=== PATIENT | male | born 1965 | race African-American/Black ===

== ENCOUNTER 2016-11-10 19:03 | Emergency (ER) | payer OTHER ==
[2016-11-10 19:10] VITALS: BP 158/100
--- NOTE | 2016-11-10 19:13 | PHYS DOC ---
Adult General Chief Complaint Chief Complaint: LACERATION/AVULSION HPI HPI Patient is a 51 year old M who presents with left index finger laceration. Patient cut himself while at work. Patient sustained no other injuries. Patient has a 2 cm laceration to his proximal index finger on the palm side. Patient sustained no other injuries. Patient states he can move all his fingers and has no loss of sensation. Patient's tetanus is not up-to-date. Pertinent exam findings: [place] a laceration to the proximal index finger on the left palmar side, cap Refill less than 2 seconds, patient able to flex and extend his index finger without any difficulty ED course: Patient was seen and evaluated, tetanus is updated in the emergency room, wound was sutured at bedside 2000: Laceration was repaired and sutured at bedside MDM: After reviewing the chart, CC/HPI/PMH, physical exam, do not believe the patient sustained a significant hand injury warranting further workup and/or admission at this time. I do not believe the patient sustained a tendon or ligament or nerve injury to his left index finger from the laceration. Recommended patient follow PCP in the possible need to be referred on to a hand surgeon. Strict return precautions were given. Wound instructions were given to the patient regarding signs of infection and when to return. Patient needs to have his sutures removed in 7-10 days. Additional verbal discharge instructions were provided to the patient and that if symptoms get worse or any new symptoms arise that are worrisome to the patient he is to return to the emergency room immediately Review of Systems Review of Systems GEN: Denies fevers, chills, sweats HEENT: Denies blurred vision, sore throat CV: Denies chest pain RESP: Denies shortness of air, cough GI: Denies n/v/d NEURO: Denies confusion, dizziness MSK: Figure laceration Physical Exam Physical Exam GEN.: No apparent distress. Alert and oriented. HEENT: Head is normocephalic, atraumatic NECK: Supple. LUNGS: CTAB. HEART: RRR, S1, S2 present. Peripheral pulses intact ABDOMEN: Soft, nontender. Positive bowel sounds. EXTREMITIES: Without any cyanosis. 2 cm laceration of the proximal left index finger on the palmar side, cap Refill less than 2 seconds, good radial pulse, patient able to flex and extend at the DIP and PIP without any difficulty NEUROLOGIC: Normal speech, normal tone PSYCHIATRIC: Normal affect, normal mood. SKIN: No ulcerations EKG EKG [] Radiology/Procedures Radiology/Procedures Indication: Left index finger laceration Procedure: The patient was placed in the appropriate position and anesthesia around the wound was administered. Approximately 8 mL of lidocaine without epi 1 % was used to do a digital block of the left index finger. The area was then soaked and washed out. The laceration was closed with #9 5-0 nylon using a running locking stitch. The wound area was then dressed. Total repaired wound length: 2 cm. Other Items: none The patient tolerated the procedure [TOLERATED]. Complications: none.[] Course & Med Decision Making Course & Med Decision Making Pertinent Labs and Imaging studies reviewed. (See chart for details) [] Dragon Disclaimer Dragon Disclaimer This chart was dictated in whole or in part using Voice Recognition software in a busy, high-work load, and often noisy Emergency Department environment. It may contain unintended and wholly unrecognized errors or omissions. Departure Departure: Impression: Primary Impression: Finger laceration Disposition: 01 HOME, SELF-CARE Condition: IMPROVED Patient Instructions: Laceration Care, Adult Additional Instructions: Please follow up with her family doctor within 7-10 days for suture removal. Please watch for signs of infection and if you see signs of infection please seek medical attention immediately. Please keep the wound clean and dry. Problem Qualifiers Primary Impression: Finger laceration Encounter type: initial encounter Qualified Codes: S61.219A - Laceration without foreign body of unspecified finger without damage to nail, initial encounter ISRAEL LOZANO DO Nov 10, 2016 19:13
[2016-11-10] MEDS ORDERED: DIPHTH,PERTUSS(ACELL),TET TOX 0.5 ML DISP.SYRIN. VAX IM ONE (19:30)
== END 2016-11-10 20:22 | disposition home or self-care (01) ==
LOC: ER 19:03
DX: S61.211A Laceration without foreign body of left index finger without damage to nail, initial encounter (principal); W45.8XXA Other foreign body or object entering through skin, initial encounter; Y93.89 Activity, other specified; Y99.8 Other external cause status; Y92.89 Other specified places as the place of occurrence of the external cause
CPT/HCPCS: 12001; 90471; 90715; 99283-25

== ENCOUNTER 2016-11-30 16:22 | Emergency (ER) | payer OTHER ==
[2016-11-30 16:30] VITALS: BP 136/98
--- NOTE | 2016-11-30 17:08 | PHYS DOC ---
General Chief Complaint: SUTURE/STAPLE REMOVAL Stated Complaint: SUTURE REMOVAL Time Seen by MD: 16:27 Source: patient Exam Limitations: no limitations Problems: History of Present Illness Initial Comments Patient is a 51-year-old male who comes to the ED for suture removal. Patient suffered a worker's compensation left index finger laceration November 10 requiring sutures for repair. He states that he was delayed and returning for suture removal due to Work Comp paperwork issues. He has some numbness immediately surrounding the healed wound but otherwise has no symptoms. He has no weakness or tingling pain or radiating symptoms, he denies any new tenderness warmth or discharge. He denies other complaints. Onset: other (November 10) Severity: moderate Pain/Injury Location: left 2nd finger Method of Injury: incised Modifying Factors: improves with other Allergies: Coded Allergies: No Known Allergies (Verified Allergy, Unknown, 11/10/16) Past Medical History Medical History: no pertinent history Surgical History: noncontributory Social History Smoker: cigarettes Alcohol: none Drugs: none Review of Systems Constitutional: denies chills, denies fever Respiratory: denies cough, denies shortness of breath Cardiovascular: denies chest pain, denies palpitations Gastrointestinal: denies nausea, denies vomiting Genitourinary: denies frequency, denies hematuria Musculoskeletal: see HPI, denies back pain, denies joint swelling, denies neck pain Skin: see HPI Psychiatric/Neurological: see HPI Physical Exam General Appearance: WD/WN, no apparent distress Neck: non-tender, supple Cardiovascular/Respiratory: normal peripheral pulses, no respiratory distress Hand: non-tender (healed laceration lateral aspect left index finger sutures in place wound appears to be well-healed there is no erythema warmth or tenderness.), normal ROM Neurologic/Tendon: normal motor functions, normal tendon functions, responds to pain, no evidence tendon injury, other (slight decreased sensation approximately 1 cm proximal and distal to laceration) Psychiatric: alert, oriented x 3 Skin: warm/dry (left index finger as above no other acute findings) Orders, Labs, Meds RN removed sutures I rechecked the wound afterwards there is no bleeding or other new findings. I discussed nerve regeneration and possibility of long-term numbness which should not affect the functionality of his hand his fingers. His questions were answered and he expressed agreement and understanding with the treatment plan. Departure Time of Disposition: 17:06 Disposition: 01 HOME, SELF-CARE Diagnosis: suture removal left index finger, tobaccoism Condition: IMPROVED Patient Instructions: Suture Removal-Brief Additional Instructions: Stop smoking seek medical assistance if necessary. Please review the patient education materials given by ED staff. No further treatment should be required, if new symptoms develop follow-up with your doctor. Follow-up with your employer regarding Worker's Compensation. Return to the ED when originating symptoms. GAIL KHAN DO Nov 30, 2016 17:08
== END 2016-11-30 17:52 | disposition home or self-care (01) ==
LOC: ER 16:22
DX: S61.210D Laceration without foreign body of right index finger without damage to nail, subsequent encounter (principal); F17.210 Nicotine dependence, cigarettes, uncomplicated; X58.XXXD Exposure to other specified factors, subsequent encounter; Y99.8 Other external cause status; Y92.89 Other specified places as the place of occurrence of the external cause
CPT/HCPCS: 99281